=== PATIENT | male | born 1945 | race Hispanic/Latino ===

== ENCOUNTER 2023-10-20 15:01 | Outpatient (CLI) | payer OTHER ==
[~2023-10-20 15:01] MED LIST: Magnevist 469MG/ML 20 ML VIAL ONE
== END 2023-10-20 15:02 | disposition home or self-care (01) ==
LOC: CSHMRI 15:01
PROVIDERS: ATTEND Otolaryngology Plastic Surgery within the Head & Neck
DX: H90.A21 Sensorineural hearing loss, unilateral, right ear, with restricted hearing on the contralateral side (principal); H74.8X1 Other specified disorders of right middle ear and mastoid
CPT/HCPCS: 70553; 82565

== ENCOUNTER 2024-11-10 21:59 | Emergency (ER) | payer MEDICARE ==
[2024-11-10 23:05] LABS: #Basophils Less than 0.03 10x3/uL (0.0-0.2); #Eosinophils 0.08 10x3/uL (0.0-0.5); #Monocytes 0.59 10x3/uL (0.0-1.1); #Neutrophils 3.66 10x3/uL (1.5-8.4); %Basophils 0.2 % (0.0-2.0); %Eosinophils 1.3 % (0.0-6.0); %Lymphocytes 27.4 % (18.0-47.0); %Monocytes 9.8 % (0.0-10.0); %Neutrophils 61.1 % (40.0-75.0); Hematocrit 39.9 % (38.8-50.0); Hemoglobin 13.9 g/dL (13.5-17.5); Mean Corpuscular HGB CONC 34.8 g/dL (32.0-36.0); Mean Corpuscular Hemoglobin 33.7 pg (27.0-33.0); Mean Corpuscular Volume 96.6 fL (81.2-95.1); Mean Platelet Volume 8.6 fL (7.4-10.4); Platelet Count 191 10x3/uL (150-450); RBC Distribution Width 12.8 % (11.5-14.5); Red Blood Cell (RBC) Count 4.13 10x6/uL (4.32-5.72); White Blood Cell (WBC) Count 5.99 10x3/uL (3.5-10.5)
[2024-11-10 23:14] LABS: ALT (SGPT) 19 U/L (Less than 45); AST (SGOT) 24 U/L (11-34); Albumin 4.1 g/dL (3.1-4.5); Alkaline Phosphatase 57 U/L (40-110); Anion Gap 12 mmol/L (10-20); BUN (Urea Nitrogen) 17 mg/dL (8.4-25.7); Bilirubin, Total 0.4 mg/dL (0.3-1.2); Calc. Creatinine Clearance 0 mL/min (70-130); Calcium 8.9 mg/dL (7.8-10.44); Carbon Dioxide 21 mmol/L (23-31); Chloride 110 mmol/L (98-107); Estimated GFR 90; Globulin 3.3 g/dL (2.4-3.5); Glucose 129 mg/dL (83-110); Protein, Total 7.4 g/dL (5.8-8.1); Sodium 139 mmol/L (136-145)
[2024-11-10 23:19] LABS: Troponin I Less than 0.010 ng/mL (< 0.028)
[2024-11-10] MEDS ORDERED: Nitroglycerin 2% Ointment 1 INCH/1 GM Packet ONE (23:35)
[2024-11-11 01:02] LABS: Troponin I Less than 0.010 ng/mL (< 0.028)
[2024-11-11] MEDS ORDERED: Heparin 10,000 UNITS/ 10 ML VIAL ONE (03:13)
[2024-11-11] MEDS ORDERED: Heparin 25,000 units/D5W 500 ML ONE (03:14)
[2024-11-11] MEDS ORDERED: Aspirin Chewable 81 MG TAB ONE (03:18)
== END 2024-11-11 04:12 | disposition short-term general hospital (02) ==
LOC: CSHERS 21:59
DX: I24.9 Acute ischemic heart disease, unspecified (principal); I10 Essential (primary) hypertension; I25.10 Atherosclerotic heart disease of native coronary artery without angina pectoris; E78.5 Hyperlipidemia, unspecified; K21.9 Gastro-esophageal reflux disease without esophagitis; Z79.02 Long term (current) use of antithrombotics/antiplatelets; Z95.1 Presence of aortocoronary bypass graft; Z79.82 Long term (current) use of aspirin; Z79.899 Other long term (current) drug therapy
CPT/HCPCS: 71045; 80053; 84484; 85025; 93005 ×2; J1644 ×2; 36415; 96374